=== PATIENT | female | born 1975 | race Caucasian/White ===

== ENCOUNTER 2020-06-10 11:58 | Outpatient (CLI) | payer OTHER, SELFPAY ==
[2020-06-10 12:40] LABS: SARS-CoV-2 Ag Negative (Negative)
[2020-06-12 18:27] LABS: SARS-CoV-2 RNA PCR Negative
== END 2020-06-10 11:59 | disposition home or self-care (01) ==
LOC: CHSLAB 12:02
PROVIDERS: PCP Family Medicine; Visit Provider Family Medicine
DX: J01.90 Acute sinusitis, unspecified (principal); Z20.822 Contact with and (suspected) exposure to COVID-19
CPT/HCPCS: 87426; C9803; U0003; U0005

== ENCOUNTER → 2020-10-09 10:35 | Outpatient (CLI) | payer OTHER, SELFPAY ==
--- NOTE | ~2020-10-09 | MM_ITS ---
EXAMINATION: MM screening lian BI w altagracia HISTORY: Screening mammogram TECHNIQUE: Craniocaudal and mediolateral oblique 3-D tomosynthesis images were obtained and synthetic 2-D images were generated. CAD analysis was submitted and interpreted. COMPARISON: 10/28/2018 bilateral diagnostic digital mammogram and bilateral complete breast ultrasound examination. 10/06/2018, 09/06/2016 bilateral digital screening mammogram examinations BREAST PARENCHYMAL COMPOSITION: The breasts are heterogeneously dense, which may obscure small masses . FINDINGS: There is no evidence of suspicious mass, calcification, or architectural distortion to sugg est malignancy in either breast. There has been no suspicious interval change. IMPRESSION: 1. No mammographic evidence of malignancy. 2. Recommend routine screening mammography in one year. BI-RADS Category 1: Negative Reviewed, dictated and finalized at location A.
== END ==
PROVIDERS: PCP Family Medicine; Visit Provider Obstetrics & Gynecology
DX: Z12.31 Encounter for screening mammogram for malignant neoplasm of breast (principal)
CPT/HCPCS: 77063; 77067

== ENCOUNTER 2021-03-02 17:35 | Outpatient (CLI) | payer OTHER, SELFPAY ==
[2021-03-02 18:24] LABS: SARS-CoV-2 Ag Positive (Negative)
== END 2021-03-02 17:36 | disposition home or self-care (01) ==
LOC: CHSLAB 17:38
PROVIDERS: PCP Nurse Practitioner Psychiatric/Mental Health; Visit Provider Nurse Practitioner Psychiatric/Mental Health
DX: U07.1 COVID-19 (principal)
CPT/HCPCS: 87426; C9803

== ENCOUNTER 2021-03-03 09:57 | Outpatient (CLI) | payer OTHER, SELFPAY ==
[2021-03-03 11:03] LABS: SARS-CoV-2 RNA PCR Positive (Negative)
== END 2021-03-03 09:58 | disposition home or self-care (01) ==
LOC: CHSLAB 10:01
PROVIDERS: PCP Nurse Practitioner Psychiatric/Mental Health; Visit Provider Nurse Practitioner Psychiatric/Mental Health
DX: U07.1 COVID-19 (principal)
CPT/HCPCS: C9803; U0003; U0005

== ENCOUNTER 2021-03-08 12:59 | Outpatient (CLI) | payer OTHER, SELFPAY ==
[2021-03-08] MEDS: diphenhydrAMINE HCl CAP 25 MG CAPSULE PO (13:40)
[2021-03-08] MEDS: FAMOTIDINE 20 MG TABLET PO (13:45)
[2021-03-08] MEDS: ACETAMINOPHEN 325 MG TABLET 650 MG PO (13:45)
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
== END 2021-03-08 13:00 | disposition home or self-care (01) ==
LOC: CHSTREATRM 13:03
PROVIDERS: PCP Family Medicine; Visit Provider Family Medicine
DX: Z23 Encounter for immunization (principal); U07.1 COVID-19
CPT/HCPCS: 96365; A9270; M0245; Q0245

== ENCOUNTER 2021-03-10 09:41 | Outpatient (CLI) | payer OTHER, SELFPAY ==
[2021-03-10 10:47] LABS: SARS-CoV-2 RNA PCR Negative (Negative)
== END 2021-03-10 09:42 | disposition home or self-care (01) ==
LOC: CHSLAB 09:43
PROVIDERS: PCP Physician Assistant; Visit Provider Physician Assistant
DX: U07.1 COVID-19 (principal)
CPT/HCPCS: C9803; U0003; U0005

== ENCOUNTER → 2022-03-05 16:58 | Outpatient (CLI) | payer OTHER, SELFPAY ==
--- NOTE | ~2022-03-05 | MM_ITS ---
EXAMINATION: MM screening lian BI w altag[place]ia HISTORY: Screening TECHNIQUE: Craniocaudal and mediolateral oblique 3-D tomosynthesis images were obtained and synthetic 2-D images were generated. CAD analysis was submitted and interpreted. COMPARISON: Comparison to multiple prior studies sequentially, with oldest reviewed study dated 08/06. BREAST PARENCHYMAL COMPOSITION: The breasts are heterogeneously dense, which may obscure small masses . FINDINGS: There are asymmetries in the upper outer quadrant of the right breast appear slightly dense r than on prior examination. The left breast is stable without evidence for malignancy. IMPRESSION: 1. Right breast asymmetries, upper outer quadrant, middle third. 2. Additional mammographic views and possible breast ultrasound are recommended. BI-RADS Category 0: Incomplete: Needs additional imaging evaluation. Reviewed, dictated and finalized at location A. IMPRESSION: 1. Right breast asymmetries, upper outer quadrant, middle third. 2. Additional mammographic views and possible breast ultrasound are recommended . BI-RADS Category 0: Incomplete: Needs additional imaging evaluation.
== END ==
PROVIDERS: PCP Physician Assistant; Visit Provider Obstetrics & Gynecology
DX: Z12.31 Encounter for screening mammogram for malignant neoplasm of breast (principal); R92.8 Other abnormal and inconclusive findings on diagnostic imaging of breast
CPT/HCPCS: 77063; 77067

== ENCOUNTER → 2022-04-05 08:26 | Outpatient (CLI) | payer OTHER, SELFPAY ==
--- NOTE | ~2022-04-05 | MMUS_ITS ---
EXAMINATION: MM diagnostic lian RT w altagracia, US breast RT limited HISTORY: Follow-up right breast asymmetries TECHNIQUE: Additional 3-D tomosynthesis images of the right breast were performed and synthetic 2-D i mages were generated. CAD analysis was submitted and interpreted. High resolution Limited right breas t ultrasound was performed. COMPARISON: Comparison to multiple prior studies sequentially, with oldest reviewed study dated 09/06. BREAST PARENCHYMAL COMPOSITION: The breasts are heterogeneously dense, which may obscure small masses FINDINGS: MAMMOGRAPHIC FINDINGS: No discrete mass, architectural distortion or suspicious cluster of calcifications are identified. ULTRASOUND: Right breast ultrasound: At 11:00, 6 cm from the nipple, there is a 5 mm cyst. At 9:00, 9 cm from the nipple there is a 3 mm cyst. No suspicious masses to suggest malignancy. IMPRESSION: 1. No evidence for malignancy in the right breast. Benign findings. 2. Routine yearly screening mammogram and regular clinical breast examination are recommended. BI-RADS Category 2: Benign finding(s). Reviewed, dictated and finalized at location A. 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 No evidence for malignancy in the right breast. Benign findings. 2. Routine yearly screening mammogram and regular clinical breast examination a re recommended. BI-RADS Category 2: Benign finding(s).
== END ==
PROVIDERS: PCP Physician Assistant; Visit Provider Family Medicine
DX: R92.8 Other abnormal and inconclusive findings on diagnostic imaging of breast (principal)
CPT/HCPCS: 76642; 77061; 77065; G0279

== ENCOUNTER 2022-11-25 18:22 | Outpatient (CLI) | payer SELFPAY ==
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
== END 2022-11-25 18:23 | disposition home or self-care (01) ==
PROVIDERS: PCP Physician Assistant; Visit Provider Family Medicine
DX: M79.642 Pain in left hand (principal); M19.042 Primary osteoarthritis, left hand
CPT/HCPCS: 73130

== ENCOUNTER 2023-04-14 07:57 | Outpatient (CLI) | payer BC, SELFPAY ==
--- NOTE | ~2023-04-14 | MM_ITS ---
EXAMINATION: MM screening lian BI w altagracia HISTORY: Screening mammogram TECHNIQUE: Craniocaudal and mediolateral oblique 3-D tomosynthesis images were obtained and synthetic 2-D images were generated. CAD analysis was submitted and interpreted. COMPARISON: 04/05/2022 diagnostic right mammogram, Limited right breast ultrasound 03/05/2022, 10/05/2020 bilateral screening mammogram examinations BREAST PARENCHYMAL COMPOSITION: The breasts are heterogeneously dense, which may obscure small masses . FINDINGS: There is no evidence of suspicious mass, calcification, or architectural distortion to sugg est malignancy in either breast. There has been no suspicious interval change. IMPRESSION: 1. No mammographic evidence of malignancy. 2. Recommend routine screening mammography in one year. BI-RADS Category 1: Negative Reviewed, dictated and finalized at location A. CTOR OF SEARCH ENGINE OPTIMIZATION
== END 2023-04-14 07:58 | disposition home or self-care (01) ==
LOC: CHSIMG 07:59
PROVIDERS: PCP Physician Assistant; Visit Provider Nurse Practitioner Obstetrics & Gynecology
DX: Z12.31 Encounter for screening mammogram for malignant neoplasm of breast (principal)
CPT/HCPCS: 77063; 77067

== ENCOUNTER 2023-07-20 13:20 | Emergency (ER) | payer BC, SELFPAY ==
--- NOTE | ~2023-07-20 | XR_ITS ---
EXAM: XR lumbar spine 2-3V DATE: 07/20/2023 14:27 HISTORY: Low back pain radiates down Lt. leg x2 weeks; worsening . COMPARISON: None available. FINDINGS: Cholelithiasis. IUD. Pelvic phleboliths 5 nonrib-bearing lumbar-type vertebral bodies. Pedi cles intact. Mild spinal asymmetry. 2 mm retrolisthesis at L4-5, otherwise normal vertebral body alig nment. Vertebral body heights preserved. Mild disc space narrowing/marginal osteophytosis at L3-4 and L4-5. Normal facets and posterior elements. No fracture or dislocation. IMPRESSION: Grade 1 retrolisthesis at L4-5. Mild degenerative disc disease at L3-4 and L4-5. Reviewed, dictated and finalized at location K. OR HYDROGEOLOGIST IMPRESSION: Grade 1 retrolisthesis at L4-5. Mild degenerative disc disease at L 3-4 and L4-5.
[2023-07-20 13:24] VITALS: BP 136/99; PULSE 81; RESP 16; TEMP 36.8; O2SAT 99
--- NOTE | 2023-07-20 13:37 | ED.BACK ---
HPI - Back Pain/Injury General Chief Complaint: Back Pain/Injury Stated Complaint: Raisa BOYKIN PAIN Time Seen by Provider: 07/20/23 13:23 Source: patient Mode of arrival: ambulatory Limitations: no limitations History of Present Illness HPI Narrative: Patient is a 48-year-old female with left lower extremity shooting pains and lumbar spine pain. No injuries. This has been going on for 2 weeks. She has seen the chiropractor. MD elicited complaint: back pain Onset (ago): week(s) (2) Timing: constant and progressively worsening Severity: moderate Pain scale (0-10): 6 Similar Symptoms Previously: No Quality: sharp, tingling and other ( Shooting pain down the left lower extremity) Location: lumbar spine Radiation: left upper leg and left leg below the knee Exacerbating factors: movement and walking Relieving factors: immobilization Context: unknown Associated symptoms: denies other symptoms Treatments prior to arrival: NSAIDS, acetaminophen and prescription analgesics ( patient took another person's Percocet trial without relief) Work related injury: No Related Data Allergies Allergy/AdvReac Type Severity Reaction Status Date / Time Penicillins Allergy Anaphylaxis Verified 07/20/23 13:40 Review of Systems Review of Systems: All systems reviewed & are unremarkable except as noted in HPI and below Constitutional: Constitutional: Reports no additional constitutional complaints Eyes: Eyes: Reports no additional eye complaints ENT: Reports system reviewed and no additional complaints, except as documented Cardiovascular: Cardiovascular: Reports no additional cardiovascular complaints Respiratory: Respiratory: Reports no additional respiratory complaints Gastrointestinal: Gastrointestinal: Reports no additional gastrointestinal complaints Genitourinary: Genitourinary: Reports no additional female genitourinary complaints Musculoskeletal: Musculoskeletal: Reports no additional musculoskeletal complaints Integumentary/Breasts: Skin/Breast: Reports system reviewed and no additional complaints, except as docu Neurologic: Reports system reviewed and no additional complaints, except as documented Psychiatric: Psychiatric: Reports no additional psychiatric complaints Endocrine: Endocrine: Reports no additional endocrine complaints Hematologic/Lymphatic: Hematologic/Lymphatic: Reports no additional hematologic/lymphatic complaints Allergic/Immunologic: Allergic/Immunologic: Reports no additional allergic/immunologic complaints Exam Const: General: ill appearing Nutritional Appearance: well nourished Orientation/consciousness: patient oriented x3 HENMT: Head: normal to inspection Ears: external ears normal Face/Nose/Sinus: Normal external nose present Eyes: Conjunctivae: conjunctivae normal Pupils: Equal, round and reactive pupils present EOM: EOMs intact bilaterally Neck: Neck: normal visual inspection Chest: Chest palpation & inspection: normal inspection of the chest Resp: Effort & Inspection: normal respiratory effort and not labored Auscultation: clear to auscultation bilaterally Cardio: Rate: regular rate Rhythm: regular rhythm Heart sounds: no murmurs GI: Inspection: non-distended Auscultation: normal bowel sounds and bowel sounds present : General: Yes bladder normal to palpation Back/Spine/Pelvis: Back: no CVA tenderness Other: mild lateral left tender lumbar spine; no midline tenderness or step-offs or deformities Skin: General skin exam: normal color Rashes: no rashes Wounds: no wounds Neuro: General: patient oriented x3 Cranial nerves: Yes Nystagmus not present Speech: normal speech Other: straight leg test on the left was positive Extrem: General: normal to inspection Psych: Mental Status: mental status grossly normal Affect: normal affect Attitude: cooperative Course Vital Signs Vital signs: Vital Signs Temperature 36.8 C 07/20/23 13:24 Pulse Rate
[2023-07-20] MEDS: KETOROLAC (*BKC) 60 MG/2 ML VIAL IM (14:10)
[2023-07-20] MEDS: methylPREDNISolone SOD SUCC 125 MG VIAL IM (14:13)
--- NOTE | 2023-07-20 14:40 | PC.NURSE ---
On 07/20/23, the student, Beba Porras, provided care and completed [facility] documentation on this patient. I have reviewed the student's documentation and agree with the findings.
[2023-07-20 14:49] VITALS: BP 114/89; PULSE 72; RESP 17; TEMP 36.6; O2SAT 100
== END 2023-07-20 14:49 | disposition home or self-care (01) ==
PROVIDERS: Emergency Provider Emergency Medicine; PCP Physician Assistant
DX: M54.16 Radiculopathy, lumbar region (principal); M54.40 Lumbago with sciatica, unspecified side
CPT/HCPCS: 72100; 96372; 99284; J1885; J2930

== ENCOUNTER 2023-07-24 10:50 | Outpatient (CLI) | payer BC, SELFPAY ==
--- NOTE | ~2023-07-24 | MR_ITS ---
EXAMINATION: MR lumbar spine wo con, MR sacrum wo con DATE: 07/24/2023 11:58 INDICATION: Low back pain and left-sided sciatica with 2 weeks of worsening pain radiating down the l eft leg. TECHNIQUE: 1. Magnetic resonance imaging (MRI) of the lumbar spine was performed without intravenous contrast. S equences included sagittal T2-weighted FSE, sagittal T2-weighted FS FSE, sagittal T1-weighted FSE, an d axial T2-weighted FSE. 2. MRI of the sacrum was obtained without intravenous contrast. Sequences included sagittal T2-weight ed FS FSE, oblique axial and coronal T1-weighted FSE and T2-weighted FS FSE and oblique coronal T2-we ighted FSE. COMPARISON: None FINDINGS: Lumbar spine: 5 degrees lumbar dextrocurvature. Sagittal alignment is normal. Vertebral body heights are normal. N ormal marrow signal. Mild disc desiccation and mild disc height loss at L3-L4 and L5-S1, the latter w ith associated annular fissure. Remaining lumbar discs are normal. The conus medullaris terminates at L2. There is normal signal in the caudal spinal cord. Paravertebral soft tissues are unremarkable. T he following disc levels are specifically discussed: T12-L1, L1-L2 and L2-L3: The disc does not extend beyond the endplate margin. There is mild bilateral facet joint osteoarthritis. There is no neural foraminal stenosis. There is no central canal stenosi s. L1-L2: The disc does not extend beyond the endplate margin. There is no facet joint osteoarthritis. T here is no neural foraminal stenosis. There is no central canal stenosis. L2-L3: The disc does not extend beyond the endplate margin. There is no facet joint osteoarthritis. T here is no neural foraminal stenosis. There is no central canal stenosis. L3-L4: Disc is mildly bulging. There is mild bilateral facet joint osteoarthritis. There is minimal b ilateral neural foraminal stenosis. There is minimal central canal stenosis. L4-L5: Disc is minimally bulging. There is mild bilateral facet joint osteoarthritis. There is minima l bilateral neural foraminal stenosis. There is no central canal stenosis. L5-S1: Disc is bulging with superimposed annular fissure and left paracentral disc extrusion with dis c material extending up to 5 mm caudal to the level of the superior endplate of S1 and measuring 6 mm AP and 10 mm left to right. There is mild bilateral facet joint osteoarthritis. There is mild bilate ral neural foraminal stenosis. The disc extrusion also mildly narrows the left lateral recess exertin g some mass effect upon the traversing left S1 nerve root. There is otherwise minimal central canal s tenosis. Sacrum: Sacrum and visualized posterior pelvis are normal with normal bone marrow signal throughout. No react darcie edema, fracture or pathologic marrow replacing process. Bilateral sacralized joints are normal wi th no erosions or increased fluid signal to suggest an inflammatory sacroiliitis. 7 mm T2 hyperintens e lesion at the posterior lower uterine segment likely representing a small uterine fibroid. A couple small bilateral T2 hyperintense follicles in each ovary, the largest on the right measuring 1.8 cm. Bladder is normal. No free fluid in the pelvis. IMPRESSION: 1. Mild lumbar spondylosis most notable for annular fissure and left paracentral disc extrusion at L5 -S1 which exerts mild mass effect upon the traversing left S1 nerve root. Correlate clinically for mu scle weakness of plantar flexion, sensory change of the lateral foot and small toe, and depressed ank le reflex. Reviewed, dictated and finalized at location A. DESIGN CHECKER IMPRESSION: 1. Mild lumbar spondylosis most notable for annular fissure and left paracentra l disc extrusion at L5-S1 which exerts mild mass effect upon the traversing lef t S1 nerve root. Correlate clinically for muscle weakness of
== END 2023-07-24 10:51 ==
LOC: GOSHIMG 10:50
PROVIDERS: PCP Physician Assistant
DX: M43.06 Spondylolysis, lumbar region (principal); M54.42 Lumbago with sciatica, left side; M48.07 Spinal stenosis, lumbosacral region; M46.06 Spinal enthesopathy, lumbar region; M62.830 Muscle spasm of back
CPT/HCPCS: 72148; 72195

== ENCOUNTER 2023-08-04 10:22 | Outpatient (RCR) | payer BC, SELFPAY ==
--- NOTE | 2023-08-04 11:18 | PTOPEVAL1 ---
Assessment and note entered by Je Kaba Evaluation Information Assessment Status Evaluation Diagnosis bulging lumbar disc, low back pain Onset 07/03/23 Subjective Information Pt. reports she woke with pain July 03. She reports pain was mild initially and has progressively gotten worse. She describes pain worst in the area of the buttock on the left and radiates down to the foot. She reports she has a constant numb feeling in the left foot and calf. She reports pain is most severe in the morning. She states that sitting for long periods and bending forward will increase her pain. She reports she is slow to get dressed and needs help with tying her shoes and putting her shoes on. Pt . reports that she continues to work despite her pain. She states that she has on/off difficulty with sleeping. She uses a TENS unit and ice to ease her pain. She reports that her goal is to decrease her pain. Reported Pain Level Pain Score 9: Self Report Assessment PT Clinical Summary Pt. is a 48 year old female who enters the clinic with lumbar radiculopathy do to noted L5-S1 disc bulging noted on MRI. She is very guarded on this date and has trouble participating in all testing . She currently presents with impaired trunk mobility, functional decline, pain, and impaired gait. Muscle testing could not be completed due to pain. Continued skilled PT is indicated in order to improve these areas to allow the pt. improved comfort with IADL performance. Plan of Care Interventions Electrical Stimulation,Gait Training,Hot Pack/Cold Pack,Manual Therapy,Mechanical Traction,Neuro Re- education,Patient/Caregiver Educati,Therapeutic Activities,Therapeutic Exercise PT Services Indicated Yes Treatment Frequency and 2x/week x 10 visits Duration These treatments will address the objective and functional deficits as defined above. The patient will be advanced safely and appropriately in order for the patient to progress towards his/her prior level of function. Additional exercises will be introduced and as well as a comprehensive home exercise program upon discharge, if needed, ?to ensure carryover of functional gains achieved in the clinic. This treatment plan has been reviewed and agreement upon by the patient.
--- NOTE | 2023-08-04 11:19 | OPREHPOC ---
Outpatient Therapy Plan of Care This is a Multidisciplinary Plan of Care that may contain components documented by all disciplines (PT, OT, and ST.) PT Problem 1 PT Problem #1 Knowledge Deficit PT Goal 1 Goal Pt. will be independent with a HEP addressing trunk mobility and strength PT Problem 2 PT Problem #2 Impaired Gait PT Goal 1 Goal Pt. will demonstrate improve fluidity of gait with equal right and left stance time and complete 6 minute walk test with distance of 1100' or greater Target Visit 10 PT Problem 3 PT Problem #3 Impaired Range of Motion PT Goal 1 Goal Pt. will be able to safely reach to the floor to lift small objects for 10 reps with proper mechanics. Target Visit 10 PT Problem 4 PT Problem #4 Pain PT Goal 1 Goal Pt. will report pain levels at 3/10 at worst with prolonged standing and sitting activities. Pt. demonstrate less than 20% limitation on the LEFS
--- NOTE | 2023-09-05 17:05 | OPREHPOC ---
Outpatient Therapy Plan of Care This is a Multidisciplinary Plan of Care that may contain components documented by all disciplines (PT, OT, and ST.) PT Problem 1 PT Problem #1 Knowledge Deficit PT Goal 1 Goal Pt. will be independent with a HEP addressing trunk mobility and strength Progress Met PT Problem 2 PT Problem #2 Impaired Gait PT Goal 1 Goal Pt. will demonstrate improve fluidity of gait with equal right and left stance time and complete 6 minute walk test with distance of 1100' or greater Target Visit 10 Progress Not Met PT Problem 3 PT Problem #3 Impaired Range of Motion PT Goal 1 Goal Pt. will be able to safely reach to the floor to lift small objects for 10 reps with proper mechanics. Target Visit 10 Progress Not Met PT Problem 4 PT Problem #4 Pain PT Goal 1 Goal Pt. will report pain levels at 3/10 at worst with prolonged standing and sitting activities. Pt. demonstrate less than 20% limitation on the LEFS Progress Not Met
--- NOTE | 2023-09-05 17:06 | PTOPDC ---
Assessment and note entered by JT File, PT Evaluation Information Assessment Status Discharge Diagnosis bulging lumbar disc, low back pain Onset 07/03/23 Subjective Information patient reports she does feel a little bit better since her 2nd epidural injection, but still not normal. she reports she still has symptoms all the way down the L LE. she reports she does not have a follow up with the neurosurgeon yet, but was instructed that if the 2nd injection did not work to follow up with them regarding surgery. she reports she still has increased pain with being up for more than 15 minutes, and sitting too long. she reports her symptoms are worse in the morning. she reports she is unable to sit in an upright posture, and has to sit semi-reclined with her legs out. Reported Pain Level Pain Score 6: Self Report Assessment PT Clinical Summary mrs. goodwin presents to skilled PT services for her 9th skilled PT visit for lower back pain and L LE radiculopathy. she has only seen minor improvements in function and reduction of pain since beginning therapy, and has only met goal for HEP performance. due to a lack of significant improvements made up to this point, patient will be DC'd from skilled PT services today. she was educated to reach out to her neurosurgeon about scheduling to talk about surgery on the lower back . Plan of Care PT Services Indicated Yes
== END 2023-09-05 17:10 | disposition home or self-care (01) ==
LOC: CHSPT 10:22
PROVIDERS: Visit Provider Family Medicine
DX: M51.36 Other intervertebral disc degeneration, lumbar region (principal)
CPT/HCPCS: 97012; 97014; 97110; 97140; 97161; G0283

== ENCOUNTER 2023-08-05 11:59 | Emergency (ER) | payer BC, SELFPAY ==
[2023-08-05 11:59] VITALS: BP 117/98; PULSE 100; RESP 20; TEMP 36.6; O2SAT 99
[2023-08-05] MEDS: LIDOCAINE 5% PATCH 1 PATCH TRANSDERM (12:39)
--- NOTE | 2023-08-05 12:39 | ED.GENADULT ---
HPI - General Adult General Chief complaint: Back Pain/Injury Stated complaint: sciata pain Time Seen by Provider: 08/05/23 12:33 History of Present Illness HPI narrative: this is a 48-year-old female history of sciatica presenting with left leg pain. Patient was diagnosed with a bulging disc after obtaining an MRI. She is in physical therapy for sciatica. She underwent a full session yesterday but since then is having progressively worse to the left lower back pain that radiates down the back of her leg to her calf. patient has been was prescribed meloxicam, orphenadrine and [place]. She has not taken her medication today. no fevers chills trauma IV drug abuse urinary retention bowel incontinence saddle anesthesia or lower extremity weakness. Related Data Home Medications Medication Instructions Recorded Confirmed hydrocodone 5 mg-acetaminophen 325 1 tablet PO QID 08/05/23 08/05/23 mg tablet meloxicam 15 mg tablet 15 mg PO DAILY 08/05/23 08/05/23 Allergies Allergy/AdvReac Type Severity Reaction Status Date / Time Penicillins Allergy Anaphylaxis Verified 08/05/23 12:04 Exam Narrative: APPEARANCE: No apparent distress. Head: atraumatic. EYES: EOMI, NOSE: Atraumatic NECK: Trachea midline RESPIRATORY: No increased rate of breathing CARDIOVASCULAR: RRR, ABDOMINAL: Non-distended MUSCULOSKELETAl: Straight leg positive on the left, negative on the right, neurovascularly intact bilaterally, no tenderness to palpation lumbar paralumbar region lb patient is able ambulate NEURO: Alert. Moving 4/4 extremities SKIN:: Warm, dry. Normal color PSYCHIATRIC: Normal affect Course Vital Signs Vital signs: Vital Signs Temperature 97.9 F 08/05/23 11:59 Pulse Rate 100 08/05/23 11:59 Respiratory Rate 20 08/05/23 11:59 Blood Pressure 117/98 H 08/05/23 11:59 Pulse Oximetry 99 08/05/23 11:59 Oxygen Delivery Room Air 08/05/23 11:59 Temperature 97.9 F 08/05/23 11:59 Pulse Rate 100 08/05/23 11:59 Respiratory Rate 20 08/05/23 11:59 Blood Pressure 117/98 H 08/05/23 11:59 Pulse Oximetry 99 08/05/23 11:59 Oxygen Delivery Room Air 08/05/23 11:59 Medical Decision Making MDM Narrative Medical decision making narrative: -Course: 48-year-old presenting with left-sided sciatica. Given symptomatic treatment with mild improvement. No red flags on history or physical. Discharged with primary care follow-up. 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 Denies drugs or alcohol -External Chart Review: review of ER visit for similar complaint -Interventions: Toradol, Tylenol, dexamethasone, lidocaine patch, Robaxin -Shared decision making / Disposition: discharge -RX Tylenol, Robaxin, lidocaine patch Vital Signs Vital Signs: Vital Signs Temperature 97.9 F 08/05/23 11:59 Pulse Rate 100 08/05/23 11:59 Respiratory Rate 20 08/05/23 11:59 Blood Pressure 117/98 H 08/05/23 11:59 Pulse Oximetry 99 08/05/23 11:59 Oxygen Delivery Room Air 08/05/23 11:59 Temperature 97.9 F 08/05/23 11:59 Pulse Rate 100 08/05/23 11:59 Respiratory Rate 20 08/05/23 11:59 Blood Pressure 117/98 H 08/05/23 11:59 Pulse Oximetry 99 08/05/23 11:59 Oxygen Delivery Room Air 08/05/23 11:59 Discharge Plan Discharge Clinical Impression: Sciatica Patient Disposition: Home, Self-Care Condition: Stable Instructions: Antibiotic Form, Sciatica (ED), Acute Low Back Pain (ED) Additional Instructions: take the prescribed medications for your pain. Please follow-up with your primary care physician and continue going to physical therapy. Prescriptions: New acetaminophen 500 mg tablet 1,000 mg PO TID PRN (Reason: olivier) 7 Days Qty: 42 0RF methocarbamol 750 mg tablet
[2023-08-05] MEDS: ACETAMINOPHEN 500 MG TABLET 1000 MG PO (12:40)
[2023-08-05] MEDS: methocarbamoL 750 MG TABLET 1500 MG PO (12:41)
[2023-08-05] MEDS: KETOROLAC 30 MG/ML VIAL (*BKC) IM (12:41)
[2023-08-05] MEDS: dexAMETHasone SOD PHOS INJ 10 MG/ML 1 ML VIAL IM (12:41)
--- NOTE | 2023-08-05 13:25 | PC.NURSE ---
PT IS LYING ON STRETCHER IN EXAM ROOM, REPORTS PAIN IS BETTER. MOTHER IS AT BEDSIDE.
[2023-08-05 13:30] VITALS: BP 126/78; PULSE 88; RESP 18; O2SAT 98
== END 2023-08-05 13:30 | disposition home or self-care (01) ==
PROVIDERS: Emergency Provider Emergency Medicine; PCP Physician Assistant
DX: M51.17 Intervertebral disc disorders with radiculopathy, lumbosacral region (principal)
CPT/HCPCS: 96372; 99284; A9270; J1100; J1885

== ENCOUNTER 2023-10-24 10:32 | Outpatient (CLI) | payer BC, SELFPAY ==
--- NOTE | 2023-10-24 10:44 | ECG_ITS ---
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 Measurements Intervals [place] Rate: 66 P: 47 NM: 159 QRS: 19 QRSD: 89 T: 28 QT: 387 QTc: 407 Interpretive Statements SINUS RHYTHM WITHIN NORMAL LIMITS No previous ECG available for comparison Electronically Signed On 10-25-2023 07:45:26 CDT by Je Fletcher M.D.
[2023-10-24 11:06] LABS: Hematocrit 40.9 % (37.0-47.0); Hemoglobin 13.3 g/dL (12.0-15.0); Mean Corpuscular HGB Conc 32.5 g/dl (32-36); Mean Corpuscular Hemoglobin 30.7 pg (26-34); Mean Corpuscular Volume 94.5 fl (80-100); Mean Platelet Volume 9.2 fl (7.4-10.4); Platelet Count Result 273 k/mm3 (150-375); Red Blood Count 4.33 M/mm3 (4.2-5.4); Red Cell Distribution Width 12.7 % (11.5-14.5); White Blood Count 6.3 K/mm3 (4.5-10.0)
[2023-10-24 11:10] LABS: Appearance Urine Clear (Clear); Bilirubin Urine Negative (Negative); Blood Urine Negative (Negative); Color Urine Yellow (Yellow); Glucose Urine UA Negative (Negative); Ketones Urine Negative (Negative); Leukocyte Esterase Ur Negative LEU/UL (Negative); Nitrate Urine Negative (Negative); Protein Urine Negative (Negative); Urobilinogen Urine 0.2 mg/dL (<2.0); pH Urine 5.5 (5.0-9.0)
[2023-10-24 11:15] LABS: Prothrombin Time 13.3 Seconds (11.1-14.7)
[2023-10-24 11:17] LABS: Add Urine Microscopic? NO
[2023-10-24 11:23] LABS: Anion Gap 6 mmol/L (4-12); Blood Urea Nitrogen 16 mg/dL (7-17); Calcium 9.1 mg/dL (8.4-10.2); Carbon Dioxide 26 mmol/L (22-30); Chloride 106 mmol/L (98-107); Estimated Glomerular Filt Rate > 60; Glucose 91 mg/dL (65-110); Potassium 3.8 mmol/L (3.4-5.0); Sodium 138 mmol/L (137-145)
== END 2023-10-24 10:33 | disposition home or self-care (01) ==
LOC: ANHSURGERY 10:37
PROVIDERS: PCP Family Medicine; Visit Provider Neurological Surgery
DX: Z01.818 Encounter for other preprocedural examination (principal); M51.16 Intervertebral disc disorders with radiculopathy, lumbar region
CPT/HCPCS: 36415; 80048; 81003; 85027; 85610; 85730; 93005

== ENCOUNTER 2023-10-29 00:32 | Day surgery (SDC) | payer BC, SELFPAY ==
[2023-10-22 15:37] VITALS: BMI 33.3
--- NOTE | 2023-10-22 15:47 | PC.NURSE ---
Addendum entered by Jorge Luis English RN 10/23/23 15:15: Shanice stopped taking Meloxicam 10-21-2023 in preparation for surgery. Original Note: Report to the Outpatient Waiting Room, entrance under the green pavilion located off [facility], at time _1000_ on date _[id number]_. Planned Procedure Time: _1200_. Time changes happen often and if your time is changed the preop area will call you the afternoon before. - You and your visitor will be asked to self-screen and do not enter if you have any COVID symptoms. - A mask is optional within the hospital at this time. Patients may have clear liquids (water, carbonated beverages, clear teas, apple juice) until 3 hours prior to surgery with a maximum of 20 ounces. - No food from midnight until time of surgery Take the following medications with a SIP of water the morning of surgery: ___Gabapentin and if needed Oxycontin DO NOT STOP ANY OF YOUR OTHER PRESCRIPTION MEDICATIONS PRIOR TO SURGERY ?EXCEPT THE FOLLOWING Medications to discontinue per physician Probiotic___ Date to take last [id number] Please no make-up, nail lao, hairspray, perfume, deodorant, or body powder the day of surgery. No jewelry (including any body piercings) or valuables the day of surgery, leave them at home. Please take a shower or bath the night before, or the morning of, surgery with an antibacterial soap. Wear comfortable, loose fitting clothing. - Jewelry must be removed prior to entering the operating room. Rings and piercings that are not removed may be cut off. - The hospital will not accept responsibility for valuables. - Please leave all valuables, including medications, at home the day of surgery. If you are going home after surgery, a licensed patient transportation driver must drive you home. - NO public transportation without another adult if you receive anesthesia. - We recommend that an adult stay with you for 24 hours following discharge. - We also recommend that you do not drive, make important decision, drink alcoholic beverages, or take any drugs that were not prescribed by your health care provider for at least 24 hours after your discharge time. Follow any additional instructions given to you from your surgeon. If you or anyone in your household have experienced Covid symptoms in the past week, please notify your surgeon or the nurse liaison at the phone number below for possible testing. Telephone instructions given to __Crystal_and asked if any additional questions and then verbalized understanding. Patient advised to call surgeon office or pre surgery nurse liaison [phone] if any additional questions.
[2023-10-29] VITALS (8 sets, daily range): BP systolic 89–137; BP diastolic 45–87; PULSE 59–71; RESP 12–18; TEMP 36.2–36.6; O2SAT 99–100; BMI 34.2
--- NOTE | ~2023-10-29 | XR_ITS ---
XR fluoroscopy no charge Indication:left L5-S1 microdiscectomy TECHNIQUE: Fluoroscopy used during left L5-S1 microdiscectomy performed by [Acacia Gil MD ] on 10/29/2023. 3 seconds of fluoroscopy with 1 fluoroscopic images captured. FINDINGS: Correlate with procedure note. IMPRESSION: Fluoroscopy used during left L5-S1 microdiscectomy. Reviewed, dictated and finalized at location B.
--- NOTE | 2023-10-29 06:53 | P.PNAN_ITS ---
Anes - Initial Pre Proc Eval Procedure: Operation Date: 10/29/23 07:30 Proposed Procedures p Left L5-S1 Microdiscectomy - Acacia Gil MD Date/Time: 10/29/23 06:53 Surgeon: Acacia Gil MD Pre Op Diagnosis: lumbar disc herniation with radiculopathy Patient Data Age: 48 Gender: F Height: 1.52 m Weight: 77.3 kg Allergies Allergy/AdvReac Type Severity Reaction Status Date / Time Penicillins Allergy Anaphylaxis Verified 10/22/23 15:34 Home Medications Medication Instructions Recorded Confirmed Type meloxicam 15 mg tablet 15 mg PO DAILY 08/05/23 10/23/23 History gabapentin 600 mg tablet 600 mg PO TID 10/22/23 10/22/23 History lactobacillus comb no.10 20 20,000 mmu cells PO DAILY 10/22/23 10/22/23 History billion cell capsule (Probiotic) methocarbamol 750 mg tablet 750 mg PO TID 10/22/23 10/22/23 History oxycodone-acetaminophen 7.5 mg-325 1 tablet PO TID PRN Pain 10/22/23 10/22/23 History mg tablet Patient hx anesthesia problems: none Family hx anesthesia problems: none Results Review: All pre-operative results and documents have been reviewed as part of the pre- operative evaluation. [facility] Family History Family History Mother Hypertension Social History Social History Smoking status: Never smoker Alcohol intake: current Alcohol use details: rarely Substance use type: does not use Do You Feel Safe in your Home?: Yes Lack of Transportation: No Lack of Food: Never True Current Housing: I Have Housing Concerned About Future Housing: No Difficulty Paying Gas/Electric Bills: No Difficulty Paying for Meds: No Currently Unemployed: No Education: High School Diploma/GED Difficulty w/ Childcare or Family Care: No Living arrangements: with family Spiritual care concerns: No Anes - Eval Final PreProcedure Day of Procedure 10/29/23 06:53 Patient weight: overweight Heart: regular rate and rhythm Lungs: clear to auscultation Airway: Mallampati scale class II Neurological: alert and oriented Last oral intake: >/= 8 hours ASA classification: II Emergent: no Anesthetic plan: proceed Anesthesia type and monitoring: general and standard monitoring Results Review: All pre-operative results and documents have been reviewed as part of the pre- operative evaluation. EKG NSR. Informed Consent: The patient's anesthetic plan and its attendant risks and benefits were discussed with the patient/family/POA. Questions were solicited and answers provided to the satisfaction of the patient/family/POA.
[2023-10-29] MEDS: LACTATED RINGERS 1,000 ML 30 ML IV CONT ×2 (07:00→09:05)
--- NOTE | 2023-10-29 07:27 | WPDHPUPDATE1 ---
History and Physical Update Update Date/Time: 10/29/23 07:27 History and Physical has been reviewed, including an updated exam of the patient. There are NO changes in the patient's condition. Risks, benefits, and alternatives have been discussed and questions answered. Patient agrees to proceed with procedure.
--- NOTE | 2023-10-29 07:27 | PM.IMHP ---
H&P: HPI History of Present Illness Date/Time: 10/29/23 07:27 Chief Complaint: leg pain Narrative: Ms. Brady is a 48-year-old female with no significant medical history who presents for follow-up left leg pain. On July 03, she felt the onset pain in the left side of her lower back. This eventually progressed to severe pain down the back of her left leg. This was significant enough that she had to go to the emergency room twice. She has had physical therapy, chiropractic treatment, acupuncture, and multiple prescription medications. She currently is taking gabapentin, Robaxin, oxycodone, and meloxicam. She had an epidural steroid injection at [facility] in July which was helpful just for a few hours. About 3 weeks ago, she had a left L5-S1 transforaminal epidural steroid injection which has given her more relief. However, her pain is still significant. It worsened significantly with sitting and bending. 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 She has not been able to leave her house aside from her doctor's appointments because of her pain. She denies any right-sided symptoms. She feels a generalized sense of weakness. She does not take any blood thinners. 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 Review of Systems Review of Systems: All systems reviewed & are unremarkable except as noted in HPI and below PMFSH Family History Family History Mother Hypertension Social History Social History Smoking status: Never smoker Alcohol intake: current Alcohol use details: rarely Substance use type: does not use Do You Feel Safe in your Home?: Yes Lack of Transportation: No Lack of Food: Never True Current Housing: I Have Housing Concerned About Future Housing: No Difficulty Paying Gas/Electric Bills: No Difficulty Paying for Meds: No Currently Unemployed: No Education: High School Diploma/GED Difficulty w/ Childcare or Family Care: No Living arrangements: with family Spiritual care concerns: No Meds Home Medications and Allergies Home Medications Medication Instructions Recorded Confirmed Type meloxicam 15 mg tablet 15 mg PO DAILY 08/05/23 10/23/23 History gabapentin 600 mg tablet 600 mg PO TID 10/22/23 10/22/23 History lactobacillus comb no.10 20 20,000 mmu cells PO DAILY 10/22/23 10/22/23 History billion cell capsule (Probiotic) methocarbamol 750 mg tablet 750 mg PO TID 10/22/23 10/22/23 History oxycodone-acetaminophen 7.5 mg-325 1 tablet PO TID PRN Pain 10/22/23 10/22/23 History mg tablet Allergies Allergy/AdvReac Type Severity Reaction Status Date / Time Penicillins Allergy Anaphylaxis Verified 10/22/23 15:34 Exam Neuro: Other: Able to walk on heels and toes without difficulty Decreased sensation to light touch in left lateral lower leg Unless otherwise stated above, the patient's physical exam is as follows: General: -Well developed and well nourished. No acute distress. Cooperative with exam. Mental status: -Awake and oriented to person, place, and time. Affect is normal. -Fund of knowledge appropriate -Recent and remote memory are intact -Attention span and concentration appear normal -Language function is normal -There is no evidence of aphasia in conversational speech. Cranial nerves: -CN II: Visual salazar full to bedside confrontation -CN III, IV, : Pupils equal, round, and reactive to light; extraocular movements, no ptosis, no nystagmus -CN V: Facial sensation intact in V1 through V3 distributions -CN VII: Face symmetric -CN VIII: Hearing intact to conversational speech -CN IX, X: Palate elevates symmetrically; normal phonation -CN XI: Symmetric full strength of sternocleidomastoid and trapezius muscles -CN XII: Tongue protrudes midline Integumentary: -No obvious sk
[2023-10-29] MEDS: ceFAZolin 2 GM/D5W 50 ML 2 GM/50 ML BAG IVPB (07:29)
[2023-10-29] MEDS: BUPIVACAINE/EPINEPHRINE 0.25% 50 ML VIAL 30 ML INFILTRATE (07:57)
--- NOTE | 2023-10-29 08:54 | PM.OP ---
Procedure Note - Brief Procedure Note - Brief Date of procedure: 10/29/23 lumbar disc herniation with radiculopathy Post-op diagnosis: Same Procedure performed: Left L5-S1 microdiskectomy Surgeon: Acacia Gil MD Anesthesia: GETA Findings: Soft disc noted to be pushing on S1 nerve root. Disc herniation easily removed. No complication Estimated blood loss (mL): 25 Drains: No Packing: No Pathology: None sent Complications: No immediate complications Condition: Stable Disposition: PACU
--- NOTE | 2023-10-29 09:11 | P.OP_ITS ---
Procedure Note - Detailed Date of Procedure 10/29/23 Pre-op Diagnosis lumbar disc herniation with radiculopathy Post-op Diagnosis Same Procedure Performed 1. Left L5-S1 microdiskectomy 2. Use of microscope for microsurgical dissection 3. 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 Brady is a 48-year-old female with a 4-5 month history of left leg pain that has been severe and unresponsive in great degree to physical therapy, MEGAN, and physical therapy. Imaging revealed a small left-sided disc herniation at L5- S1 compressing the S1 nerve root. Surgery in the form of microdiskectomy was recommended. Risks including bleeding, infection, pain, CSF leak, nerve damage, failure to relieve symptoms, recurrent disc herniation, weakness, paresthesias, and anesthetic complications were discussed. The patient provided written informed consent to proceed. Description of Procedure The patient was brought to the operating room, and general anesthesia was induced. The patient was placed prone on the Gabriel frame, and all pressure points were padded. Compression devices were placed on the patient's calves. The skin was cleaned with alcohol. The C-arm was brought onto the field to localize the appropriate disc space and assist with incisional planning. The area was prepped and draped in usual sterile fashion. A time out was conducted, and pre- operative antibiotics were administered. Local anesthesia was injected into the planned incision. A skin incision was made with a 10-blade scalpel, and dissection was carried down with the monopolar cautery to open the fascia. The left lamina of L5 was exposed with the bovie. An upgoing curette was placed under the L5 lamina, and the C-arm was brought in to confirm the correct level. A self-retaining retractor was placed. The currette was used to clear the space under the lamina. A laminotomy was made using the Kerrison rongeurs and high-speed drill. The ligamentum flavum was opened with a currette and removed with Kerrisons. The S1 nerve root was visualized with a disc herniation pressing upward on the nerve root. The root was from the disc and retracted. A nerve hook was used to remove the herniated fragment in two pieces. The disc was soft and easy to remove. A Woodsen was used to ensure the nerve root and dura were well decompressed. Hemostasis was achieved with Surgiflo and cottonoid patties. The area was copiously irrigated. No evidence of CSF leak was noted. The fascia was closed with 0-Vicryl in an interrupted fashion. The soft tissue was again copiously irrigated. The dermis was closed with 2-0 and 3-0 interrupted Vicryl. The skin was closed with subcuticular 4-0 monocryl. This was covered with skin glue. The patient was returned supine on the stretcher, extubated, and transferred to PACU without incident. Codes: 93151, 99395 Estimated Blood Loss 25 Drains No Packing No Pathology None sent Complications No immediate complications Condition Stable Disposition PACU [facility] Billing Surgery - Charge Forward: Surgery Billing
[2023-10-29] MEDS: fentaNYL CITRATE INJ (*CRX) 100 MCG/2 ML VIAL 25 MCG IV PUSH ×4 (09:21→09:38)
[2023-10-29] MEDS: oxyCODONE HCL (*CRX) 5 MG TAB IR PO (10:19)
== END 2023-10-29 11:10 | disposition home or self-care (01) ==
PROVIDERS: PCP Family Medicine; Visit Provider Neurological Surgery
PROC: (CPT 63005; principal; 2023-10-29 07:30)
DX: M51.16 Intervertebral disc disorders with radiculopathy, lumbar region (principal)
CPT/HCPCS: 63030; 99199; A9270; J0330; J0690; J1100; J2250; J2405; J2704; J3010; J7120

== ENCOUNTER 2023-12-09 12:54 | Outpatient (RCR) | payer BC, SELFPAY ==
--- NOTE | 2023-12-09 14:01 | OPREHPOC ---
Outpatient Therapy Plan of Care This is a Multidisciplinary Plan of Care that may contain components documented by all disciplines (PT, OT, and ST.) PT Problem 1 PT Problem #1 Knowledge Deficit PT Goal 1 Goal 1. independent and compliant with HEP Target Visit 3 PT Problem 2 PT Problem #2 Pain PT Goal 1 Goal 1. patient to report 5/10 pain or less in the lower back and L LE 2. patient to report no symptoms past the L buttock. Target Visit 6 PT Problem 3 PT Problem #3 Impaired Functional Mobil PT Goal 1 Goal 1. no positive XSLR or slump test of the R LE 2. no positive SLR of the L LE 3. oswestry to display 50% or less functional deficits Target Visit 6
--- NOTE | 2023-12-09 14:01 | PTOPEVAL1 ---
Assessment and note entered by JT File, PT Evaluation Information Assessment Status Evaluation Diagnosis other specified postprocedural states Other ICD-10 Condition Codes ( Z98.690 PT) Onset 11/27/23 Subjective Information patient reports a week ago she was fine, but now she is having the same symptoms she had prior to surgery. she reports the symptoms are again running down the length of the L LE from her back. she reports she is coming off microdiscectomy surgery to reduce this issue. she had surgery on 10/29/23. she did call the surgeons office to inform them of her change. she reports she was put back on several pain meds. she reports she has increased pain all the time, except for when laying down. she reports she does not yet have a follow up with the surgeon since her flare up. she reports she did not re-injure with bending or lifting activities around the home. she reports she did try to go back to work last week and made it only a day or two. sitting is intolerable at this time. Reported Pain Level Pain Score 8: Self Report Assessment PT Clinical Summary mrs. goodwin is a 48 yo woman who presents to skilled PT nearly a little over 1 month from L5-S1 microdiscectomy. she was doing well, until last week when all of a sudden her pain came back and now radiates down the L LE similar to how her pain /symptoms were prior to surgery. she does not tolerate sitting, and displays positive signs of a herniated disc. she should have MRI to evaluate needs for another operation to the lumbar spine. in the mean time, continued skilled PT may benefit the patient to improve her core stability/reduce L LE symptoms/radiculopathy. Plan of Care Interventions Electrical Stimulation,Gait Training,Hot Pack/Cold Pack,Manual Therapy,Mechanical Traction,Neuro Re- education,Patient/Caregiver Educati,Therapeutic Activities,Therapeutic Exercise PT Services Indicated Yes Treatment Frequency and 3x weekly for 6 visits Duration These treatments will address the objective and functional deficits as defined above. The patient will be advanced safely and appropriately in order for the patient to progress towards his/her prior level of function. Additional exercises will be introduced and as well as a comprehensive home exercise program upon discharge, if needed, ?to ensure carryover of functional gains achieved in the clinic. This treatment plan has been reviewed and agreement upon by the
--- NOTE | 2023-12-15 17:03 | PCPTNOTE ---
I reviewed the License Pending Therapist's documentation and agree with the findings.
--- NOTE | 2023-12-18 08:57 | OPREHPOC ---
Outpatient Therapy Plan of Care This is a Multidisciplinary Plan of Care that may contain components documented by all disciplines (PT, OT, and ST.) PT Problem 1 PT Problem #1 Knowledge Deficit PT Goal 1 Goal 1. independent and compliant with HEP Target Visit 3 Progress Met PT Problem 2 PT Problem #2 Pain PT Goal 1 Goal 1. patient to report 5/10 pain or less in the lower back and L LE 2. patient to report no symptoms past the L buttock. Target Visit 6 Progress Not Met PT Problem 3 PT Problem #3 Impaired Functional Mobil PT Goal 1 Goal 1. no positive XSLR or slump test of the R LE 2. no positive SLR of the L LE 3. oswestry to display 50% or less functional deficits Target Visit 6 Progress Not Met
--- NOTE | 2023-12-18 08:57 | PTOPDC ---
Assessment and note entered by JT File, PT Evaluation Information Assessment Status Discharge Diagnosis other specified postprocedural states Other ICD-10 Condition Codes ( Z98.690 PT) Onset 11/27/23 Subjective Information patient continues to have pain in the lower back and down the L LE similar to the symptoms she had prior to her discectomy surgery. she reports she is going to call and follow up with her surgeon today to get scheduled for follow up and begin work up for surgery needs. Reported Pain Level Pain Score 6: Self Report Pain Score 5: Self Report Assessment PT Clinical Summary mrs. goodwin presents to skilled PT services today with continued symptoms down the L LE. she has met only goal for HEP performance. she is being DC'd from skilled PT at this time to follow back up with MD regarding consult for surgery on the lower back again. she continues to displays symptoms of a discoid injury to the lower back. Plan of Care PT Services Indicated Yes
== END 2023-12-18 20:00 | disposition home or self-care (01) ==
LOC: CHSPT 12:54
PROVIDERS: Visit Provider Neurological Surgery
DX: Z48.89 Encounter for other specified surgical aftercare (principal); Z98.890 Other specified postprocedural states
CPT/HCPCS: 97012; 97014; 97110; 97140; 97162; G0283

== ENCOUNTER 2023-12-24 10:45 | Outpatient (CLI) | payer BC, SELFPAY ==
--- NOTE | ~2023-12-24 | MR_ITS ---
MRI of the lumbar spine Clinical History: Other specified postprocedural state Technique: Axial T2-weighted images, and sagittal T1-weighted, T2-weighted, and T2 fat-sat images wer e acquired. COMPARISON: 07/24/2023 Findings: There is no fracture or subluxation of lumbar spine. Vertebral bodies maintain normal heigh t and alignment. No bone marrow signal abnormality seen. At L1-L2, L2-L3, L3-L4, L4-L5, there is no disc bulge or herniation. There are minimal facet joint de generative changes at these levels. No spinal canal stenosis or neural foraminal narrowing at these l evels. At L5-S1, the left paracentral disc extrusion is decreased in size, though possibly still minimally a butting the descending left S1-S2 level nerve root. No central canal stenosis. There is preservation neural foramina. Paravertebral soft tissues are unremarkable. Impression: Interval decrease in size of left paracentral disc extrusion L5-S1. Possible persistent mild impingem ent of the descending left S1-S2 level nerve root. Reviewed, dictated and finalized at location . Impression: Interval decrease in size of left paracentral disc extrusion L5-S1. Possible pe rsistent mild impingement of the descending left S1-S2 level nerve root.
== END 2023-12-24 10:46 ==
LOC: GOSHIMG 10:45
PROVIDERS: PCP Neurological Surgery; Visit Provider Neurological Surgery
DX: Z98.890 Other specified postprocedural states (principal)
CPT/HCPCS: 72148

== ENCOUNTER 2024-04-19 08:01 | Outpatient (CLI) | payer BC, SELFPAY ==
--- NOTE | ~2024-04-19 | MM_ITS ---
EXAMINATION: MM screening lian BI w altagracia HISTORY: Screening TECHNIQUE: Craniocaudal and mediolateral oblique 3-D tomosynthesis images were obtained and synthetic 2-D images were generated. CAD analysis was submitted and interpreted. COMPARISON: Comparison to multiple prior studies sequentially, with oldest reviewed study dated 10/06. BREAST PARENCHYMAL COMPOSITION: Dense: The breasts are heterogeneously dense, which may obscure small masses FINDINGS: There is no evidence of suspicious mass, calcification, or architectural distortion to sugg est malignancy in either breast. There has been no suspicious interval change. IMPRESSION: 1. No mammographic evidence of malignancy. 2. Recommend routine screening mammography in one year. BI-RADS Category 1: Negative Reviewed, dictated and finalized at location B. ER UP
== END 2024-04-19 08:02 | disposition home or self-care (01) ==
LOC: CHSIMG 08:03
PROVIDERS: PCP Physician Assistant; Visit Provider Obstetrics & Gynecology
DX: Z12.31 Encounter for screening mammogram for malignant neoplasm of breast (principal)
CPT/HCPCS: 77063; 77067